=== PATIENT | female | born 1955 | race African-American/Black ===

== ENCOUNTER → 2016-09-24 | Outpatient (CLI) | payer OTHER ==
--- NOTE | 2016-09-24 11:06 | WOMENS IMAGING REPORT ---
EXAM DESCRIPTION: BILAT SCREENING MAMMO W/CAD COMPLETED DATE/TIME: 09/24/2016 9:47 am REASON FOR STUDY: Z12.31, ROUTINE SCREENING MAMMO Z12.31 ENCNTR SCREEN MAMMOGRAM FOR MALIGNANT NEOP LASM OF CHICO COMPARISON: 03/06/2015, 01/15/2011 TECHNIQUE: Standard craniocaudal and mediolateral oblique views of each breast recorded using digita l acquisition. LIMITATIONS: None. FINDINGS: Findings present which are benign by mammographic criteria. No suspicious masses, calcifi cations or architectural distortion. Read with the assistance of CAD. .[facility] - R2 Cenova Version 1.3 .[facility] Imaging - R2 Cenova Version 1.3 .[facility] Imaging - R2 Cenova Version 2.4 .[facility] - R2 Cenova Version 2.4 .[facility] - R2 Wagon Driver Salesperson Version 9.2 Benign mammographic findings may include one or more of the following: Smooth masses, popcorn/rim/co arse calcifications, asymmetries, post-procedure changes, and lesions with long-standing stability. BREAST DENSITY: b. There are scattered areas of fibroglandular density. BIRAD: 2 BENIGN FINDING(S) RECOMMENDATION: ROUTINE SCREENING COMMENT: PATIENT NOTIFIED BY LETTER. The [employer] recommends an annual screening mammogram for women aged 40 years or over. Each patient will receive a reminder prior to the anniversary date of her mammogram. The [employer] (ACR) has developed recommendations for screening MRI of the breast s in certain patient populations, to be used in conjunction with mammography. Breast MRI surveillanc e may be appropriate for women with more than 20% lifetime risk of developing breast cancer as deter mined by genetic testing, significant family history of the disease, or history of mantle radiation f or Hodgkins Disease. ACR Practice Guidelines 2008. TECHNICAL DOCUMENTATION: FINDING NUMBER: (1) ASSESSMENT: (1) JOB ID: [id number] [employer]- All Rights Reserved
== END ==
LOC: WI 09:28
PROVIDERS: ATTEND Nurse Practitioner Family
DX: Z12.31 Encounter for screening mammogram for malignant neoplasm of breast (principal)
CPT/HCPCS: 77067; G0202

== ENCOUNTER → 2017-12-15 | Outpatient (CLI) | payer OTHER ==
--- NOTE | 2017-12-16 12:18 | WOMENS IMAGING REPORT ---
EXAM DESCRIPTION: BILAT SCREENING MAMMO W/CAD COMPLETED DATE/TIME: 12/15/2017 8:24 am REASON FOR STUDY: ROUTINE SCREENING;Z12.31 Z12.31 ENCNTR SCREEN MAMMOGRAM FOR MALIGNANT NEOPLASM OF CHICO COMPARISON: Multiple since 2010 TECHNIQUE: Standard craniocaudal and mediolateral oblique views of each breast recorded using Zimbraa l acquisition. LIMITATIONS: None. FINDINGS: RIGHT BREAST MASSES: 7 cm from the nipple in the lower inner quadrant right breast, a mammographic nodule is prese nt for which compression magnification views in the CC and MLO orientations, right breast 90 mediola teral view, and right breast ultrasound are recommended for followup CALCIFICATIONS: No new or suspicious calcifications. ARCHITECTURAL DISTORTION: None. DEVELOPING DENSITY: None. ASYMMETRY: None noted. OTHER: No other significant findings. LEFT BREAST MASSES: No suspicious masses. CALCIFICATIONS: No new or suspicious calcifications. ARCHITECTURAL DISTORTION: None. DEVELOPING DENSITY: None. ASYMMETRY: None noted. OTHER: No other significant findings. Read with the assistance of CAD. .[facility] - R2 Cenova Version 1.3 .[facility] Imaging - R2 Cenova Version 1.3 .[facility] Imaging - R2 Cenova Version 2.4 .[facility] - R2 Cenova Version 2.4 .[facility] - R2 Aligner Barrel And Receiver Version 9.2 IMPRESSION: Mammographic nodule right breast lower inner quadrant for which additional diagnostic co mpression magnification mammograms and ultrasound are recommended. No mammographic evidence for malignancy left breast BREAST DENSITY: a. The breasts are almost entirely fatty. BIRAD: 0 Incomplete: Needs Additional Imaging Evaluation and/or prior Mammograms for Comparison. RECOMMENDATION: RECOMMENDED FOLLOW-UP: Additional right breast diagnostic mammograms and ultrasound The patient will be contacted for additional imaging. COMMENT: The patient has been notified of the results by letter per SA requirements. Additional no tification policies are in place for contacting patient with suspicious or incomplete findings. Quality ID #[id number]: The [employer] recommends an annual screening mammogram for women aged 40 years or over. This facility utilizes a reminder system to ensure that all patients receive reminder letters, and/or direct phone calls for appointments. This includes reminders for routine scr eening mammograms, diagnostic mammograms, or other Breast Imaging Interventions when appropriate. Th is patient will be placed in the appropriate reminder system. The [employer] (ACR) has developed recommendations for screening MRI of the breast s in certain patient populations, to be used in conjunction with mammography. Breast MRI surveillanc e may be appropriate for women with more than 20% lifetime risk of developing breast cancer as deter mined by genetic testing, significant family history of the disease, or history of mantle radiation f or Hodgkins Disease. ACR Practice Guidelines 2008. TECHNICAL DOCUMENTATION: FINDING NUMBER: (1) ASSESSMENT: (1) JOB ID: [id number] [employer]- All Rights Reserved Reading location - IP/workstation name: [facility]
== END ==
LOC: WI 08:07
PROVIDERS: ATTEND Nurse Practitioner Family
DX: Z12.31 Encounter for screening mammogram for malignant neoplasm of breast (principal); N63.14 Unspecified lump in the right breast, lower inner quadrant
CPT/HCPCS: 77067

== ENCOUNTER → 2018-01-02 | Outpatient (CLI) | payer OTHER ==
--- NOTE | 2018-01-02 17:56 | WOMENS IMAGING REPORT ---
EXAM DESCRIPTION: RIGHT DIAGNOSTIC MAMMO W/CAD; U/S BREAST UNILAT LIMITED COMPLETED DATE/TIME: 01/02/2018 11:08 am; 01/02/2018 11:34 am REASON FOR STUDY: UNSPECIFIED LUMP; N63.14; RT BREAST N63.14 N63.14 UNSPECIFIED LUMP IN THE RIGHT B REAST, LOWER INNER HEENA COMPARISON: Screening mammograms 2010, 2014, 2016, 2017 TECHNIQUE: Cone compression craniocaudal and mediolateral oblique images of the breast recorded with digital acquisition. Right breast 90 mediolateral view. Right breast and axilla ultrasound was also performed. LIMITATIONS: None. FINDINGS: BREAST: Right MASSES: In the medial right breast 2 to 3 o'clock position about 8 to 9 cm from the nipple, a mammogr aphic nodule is present with spiculated margins and punctate calcifications highly suspicious for mal ignancy. This measures about 10 x 15 mm in size mammographically CALCIFICATIONS: No new or suspicious calcifications. ARCHITECTURAL DISTORTION: None. DEVELOPING DENSITY: None. ASYMMETRY: None noted. OTHER: No other significant findings. Read with the assistance of CAD. .[facility] - R2 Cenova Version 1.3 .[facility] Imaging - R2 Cenova Version 1.3 .[facility] Imaging - R2 Cenova Version 2.4 .[facility] - R2 Cenova Version 2.4 .[facility] - R2 Retail Helper Version 9.2 Right breast ultrasound: Ultrasound was performed of the medial right breast. About 2 to 3 o'clock position 8 to 9 cm from th e nipple a 1.5 x 1 by 1.1 cm mass is present with irregular margins, internal color flow, and faintly shadowing calcifications. This highly suspicious for malignancy. Ultrasound-guided core biopsy with post biopsy clip placement was discussed with the patient at the t joanie of the ultrasound exam. She is amenable to ultrasound-guided core biopsy. IMPRESSION: Malignant appearing 1.5 x 1 cm mass right breast 2 to 3 o'clock position, 8 to 9 cm from the nipple. Ultrasound-guided core biopsy with post biopsy clip placement and immediate follow-up t wo-view mammogram recommended. BREAST DENSITY: a. The breasts are almost entirely fatty. BIRAD: 5 Highly suggestive of malignancy. Appropriate action should be taken. RECOMMENDATION: RECOMMENDED FOLLOW UP: Ultrasound-guided right breast biopsy with post biopsy clip p lacement and follow-up two-view mammogram SPECIFIC INTERVENTION/IMAGING/CONSULTATION RECOMMENDED:Ultrasound-guided right breast biopsy with pos t biopsy clip placement and follow-up two-view mammogram COMMUNICATION:These results were discussed with the patient. She understands she needs a breast biop sy on the right side. Findings were also called to Katie at [facility] Teague' office, 1000 hours 12/06. COMMENT: The patient has been notified of the results by letter per SA requirements. Additional no tification policies are in place for contacting patient with suspicious or incomplete findings. Quality ID #225: The [employer] recommends an annual screening mammogram for women aged 40 years or over. This facility utilizes a reminder system to ensure that all patients receive reminder letters, and/or direct phone calls for appointments. This includes reminders for routine scr eening mammograms, diagnostic mammograms, or other Breast Imaging Interventions when appropriate. Th is patient will be placed in the appropriate reminder system. The [employer] (ACR) has developed recommendations for screening MRI of the breast s in certain patient populations, to be used in conjunction with mammography. Breast MRI surveillanc e may be appropriate for women with more than 20% lifetime risk of developing breast cancer as deter mined by genetic testing, significant family history of the disease, or history of mantle radiation f or Hodgkins Disease. ACR Practice Guidelines 2008. TECHNICAL DOCUMENTATION: FINDING NUMBER: (1) ASSESSMENT: (1) JOB ID: [id number] [employer]- All Rights Reserved Reading location - IP/workstation name: [facility]-[email or web address]
--- NOTE | 2018-01-02 17:56 | WOMENS IMAGING REPORT ---
EXAM DESCRIPTION: RIGHT DIAGNOSTIC MAMMO W/CAD; U/S BREAST UNILAT LIMITED COMPLETED DATE/TIME: 01/02/2018 11:08 am; 01/02/2018 11:34 am REASON FOR STUDY: UNSPECIFIED LUMP; N63.14; RT BREAST N63.14 N63.14 UNSPECIFIED LUMP IN THE RIGHT B REAST, LOWER INNER HEENA COMPARISON: Screening mammograms 2010, 2014, 2016, 2017 TECHNIQUE: Cone compression craniocaudal and mediolateral oblique images of the breast recorded with digital acquisition. Right breast 90 mediolateral view. Right breast and axilla ultrasound was also performed. LIMITATIONS: None. FINDINGS: BREAST: Right MASSES: In the medial right breast 2 to 3 o'clock position about 8 to 9 cm from the nipple, a mammogr aphic nodule is present with spiculated margins and punctate calcifications highly suspicious for mal ignancy. This measures about 10 x 15 mm in size mammographically CALCIFICATIONS: No new or suspicious calcifications. ARCHITECTURAL DISTORTION: None. DEVELOPING DENSITY: None. ASYMMETRY: None noted. OTHER: No other significant findings. Read with the assistance of CAD. .[facility] - R2 Cenova Version 1.3 .[facility] Imaging - R2 Cenova Version 1.3 .[facility] - R2 Cenova Version 2.4 .[facility] - R2 Cenova Version 2.4 .[facility] - R2 Clinical Instructor Version 9.2 Right breast ultrasound: Ultrasound was performed of the medial right breast. About 2 to 3 o'clock position 8 to 9 cm from th e nipple a 1.5 x 1 by 1.1 cm mass is present with irregular margins, internal color flow, and faintly shadowing calcifications. This highly suspicious for malignancy. Ultrasound-guided core biopsy with post biopsy clip placement was discussed with the patient at the t joanie of the ultrasound exam. She is amenable to ultrasound-guided core biopsy. IMPRESSION: Malignant appearing 1.5 x 1 cm mass right breast 2 to 3 o'clock position, 8 to 9 cm from the nipple. Ultrasound-guided core biopsy with post biopsy clip placement and immediate follow-up t wo-view mammogram recommended. BREAST DENSITY: a. The breasts are almost entirely fatty. BIRAD: 5 Highly suggestive of malignancy. Appropriate action should be taken. RECOMMENDATION: RECOMMENDED FOLLOW UP: Ultrasound-guided right breast biopsy with post biopsy clip p lacement and follow-up two-view mammogram SPECIFIC INTERVENTION/IMAGING/CONSULTATION RECOMMENDED:Ultrasound-guided right breast biopsy with pos t biopsy clip placement and follow-up two-view mammogram COMMUNICATION:These results were discussed with the patient. She understands she needs a breast biop sy on the right side. Findings were also called to Katie at [facility] office, 1000 hours 12/06. COMMENT: The patient has been notified of the results by letter per SA requirements. Additional no tification policies are in place for contacting patient with suspicious or incomplete findings. Quality ID #225: The [employer] recommends an annual screening mammogram for women aged 40 years or over. This facility utilizes a reminder system to ensure that all patients receive reminder letters, and/or direct phone calls for appointments. This includes reminders for routine scr eening mammograms, diagnostic mammograms, or other Breast Imaging Interventions when appropriate. Th is patient will be placed in the appropriate reminder system. The [employer] (ACR) has developed recommendations for screening MRI of the breast s in certain patient populations, to be used in conjunction with mammography. Breast MRI surveillanc e may be appropriate for women with more than 20% lifetime risk of developing breast cancer as deter mined by genetic testing, significant family history of the disease, or history of mantle radiation f or Hodgkins Disease. ACR Practice Guidelines 2008. TECHNICAL DOCUMENTATION: FINDING NUMBER: (1) ASSESSMENT: (1) JOB ID: [id number] [employer]- All Rights Reserved Reading location - IP/workstation name: [email or web address]
== END ==
LOC: WI 09:19
PROVIDERS: ATTEND Nurse Practitioner Family
DX: N63.14 Unspecified lump in the right breast, lower inner quadrant (principal)
CPT/HCPCS: 76642

== ENCOUNTER → 2018-01-13 | Day surgery (SDC) | payer OTHER ==
[~2018-01-13] MED LIST: LIDOCAINE 2% INJ (20 MG/ML) 20 ML MDV ONE
--- NOTE | 2018-01-18 07:25 | WOMENS IMAGING REPORT ---
EXAM DESCRIPTION: U/S BREAST BX; RIGHT DIG DX MAMMO NO CHG COMPLETED DATE/TIME: 01/13/2018 2:15 pm; 01/13/2018 2:04 pm REASON FOR STUDY: BREAST LUMP; N63.0 S/P US RIGHT BREAST BX FOR CLIP PLACEMENT N63.10 UNSPECIFIED L UMP IN THE RIGHT BREAST, UNSPECIFIED HEENA COMPARISON: Multiple mammograms since 2010 Diagnostic mammograms and ultrasound 01/02/2018 TECHNIQUE: The procedure was discussed with the patient and the patient agreed to proceed. The patient was scanned and the area of interest in the 2 to 3 o'clock position 8 cm from the nipple of the right breast was localized. This correlates with the area of concern on prior imaging studies . This area was targeted for ultrasound-guided core biopsy. After sterile skin prep and 3.5 mL local lidocaine 1% for skin and deep tissue anesthesia, a 14 gauge coaxial core biopsy needle was used to obtain several cores of tissue from the lesion. Under ultras ound guidance, a ribbon clip was placed in the areas sampled. There were no immediate post-procedure complications. MAMMOGRAM: Post-procedure two view mammogram was acquired in the digital mammogram suite. The clip wa s in the expected location. No significant hematoma. Pathology yields a diagnosis of invasive ductal carcinoma Pathology is concordant. LIMITATIONS: None. FINDINGS: Ultrasound guided breast biopsy as described above. POST PROCEDURE MAMMOGRAMS FOR MARKER PLACEMENT: Yes IMPRESSION: ULTRASOUND-GUIDED CORE BIOPSY OF THE RIGHT BREAST YIELDS A DIAGNOSIS OF INVASIVE DUCTAL CARCINOMA BI-RADS 6 Known biopsy-proven malignancy. Appropriate action should be taken. COMMENT: PROCEDURE PERFORMED BY DR. ALARCON COMMUNICATION: THESE RESULTS WERE CALLED TO NICOL VELAZCO 1330 HOURS 01/16/2018. SHE WILL ARRANGE FO LLOW-UP FOR THE PATIENT Patient medication list reviewed: Yes- Quality ID# [id number]:Eligible professional attests to documenting i n the medical record they obtained, updated, or reviewed the patient's current medications. TECHNICAL DOCUMENTATION: JOB ID: [id number] [employer]- All Rights Reserved Reading location - IP/workstation name: [facility]-RR
== END ==
LOC: WI 13:05
PROVIDERS: ATTEND Nurse Practitioner Family
DX: C50.911 Malignant neoplasm of unspecified site of right female breast (principal)
CPT/HCPCS: 88342 ×2; 88341 ×2; 88305 ×2; 19083; J3490

== ENCOUNTER 2018-02-22 09:48 | Day surgery (SDC) | payer OTHER ==
[2018-02-15 11:06] LABS: HEMATOCRIT 46.3 % (36.0-47.0); HEMOGLOBIN 15.3 g/dL (12.0-15.5); MEAN CORPUSCULAR HEMOGLOBIN 27.5 pg (27.0-33.4); MEAN CORPUSCULAR HGB CONC 33.1 g/dL (32.0-36.0); MEAN CORPUSCULAR VOLUME 83 fl (80-97); PLATELET COUNT 306 10^3/uL (150-450); RED BLOOD COUNT 5.57 10^6/uL (3.72-5.28); RED CELL DISTRIBUTION WIDTH 14.2 % (11.5-14.0); WHITE BLOOD COUNT 6.5 10^3/uL (4.0-10.5)
[2018-02-15 11:23] LABS: ANION GAP 15 (5-19); BLOOD UREA NITROGEN 16 mg/dL (7-20); CALCIUM 10.3 mg/dL (8.4-10.2); CARBON DIOXIDE 25 mmol/L (22-30); CHLORIDE 104 mmol/L (98-107); GLUCOSE 77 mg/dL (75-110); POTASSIUM 3.8 mmol/L (3.6-5.0); SODIUM 143.9 mmol/L (137-145)
--- NOTE | 2018-02-15 13:18 | EKG REPORT ---
SEVERITY:- NORMAL ECG - SINUS RHYTHM : Confirmed by: Cb Mcmillan MD 15-Feb-2018 13:17:58
[~2018-02-22 09:48] MED LIST changes: +CEFAZOLIN 1 GM/D5W RTU 1 GM/50 ML RTUPB IV PRN; +DEXTROSE 5%-LACTATED RINGERS 1,000 ML IV PRN; +LACTATED RINGERS 1000 ML IV PRN; +LIDOCAINE 0.5% INJ-PF (5 MG/ML) 50 ML SDV SUBCUT PRN; -LIDOCAINE 2% INJ (20 MG/ML) 20 ML MDV ONE; +LIDOCAINE 4% TRANSPARENT DRESSING 5 GM KIT TP PRN
[2018-02-22] MEDS ORDERED: MICROFIBRILLAR COLLAGEN 1 GM PACK ONE (11:21)
[2018-02-22] MEDS ORDERED: METHYLENE BLUE 50 MG/10 ML AMPULE ONE (11:21)
[2018-02-22] MEDS ORDERED: LIDOCAINE 1%/EPINEPHRINE INJ 20 ML VIAL ONE (11:22)
[2018-02-22] MEDS ORDERED: FENTANYL CITRATE INJ/PF 100 MCG/2 ML AMPUL ONE (13:15)
[2018-02-22] MEDS ORDERED: MIDAZOLAM 2 MG/2 ML INJ ONE (13:15)
[2018-02-22] MEDS ORDERED: ACETAMINOPHEN 1,000 MG/100 ML RTUPB IV ONE (13:15)
[2018-02-22] MEDS ORDERED: PROPOFOL INJ 200 MG/20 ML VIAL IV ONE (13:15)
--- NOTE | 2018-02-22 13:37 | RADIOLOGY REPORT (SQ) ---
EXAM DESCRIPTION: NM LYMPHATICS/LYMPH GLANDS COMPLETED DATE/TIME: 02/22/2018 12:02 pm REASON FOR STUDY: BREAST CANCER C50.919 MALIGNANT NEOPLASM OF UNSP SITE OF UNSPECIFIED FEMAL COMPARISON: Ultrasound-guided right breast core breast biopsy 01/13/2018 RADIONUCLIDE AND DOSE: 540 microcuries TC-99m tilmanocept - Lymphoseek. The route of agent administration: Subcutaneous in the skin. TECHNIQUE: The skin of the right breast was prepped in sterile fashion. The radiopharmaceutical was administered in equally divided doses in the periareolar breast. LIMITATIONS: None. FINDINGS: Images demonstrate activity at the injection site. There is migration of activity towards the right axilla IMPRESSION: ADMINISTRATION OF RADIOPHARMACEUTICAL FOR SENTINEL LYMPH NODE EVALUATION. TECHNICAL DOCUMENTATION: JOB ID: [id number] [employer]- All Rights Reserved Reading location - IP/workstation name: [email or web address]
[2018-02-22] MEDS ORDERED: FENTANYL CITRATE INJ/PF 100 MCG/2 ML AMPUL IV PRN ×3 (14:11)
[2018-02-22] MEDS ORDERED: MEPERIDINE HCL/PF INJ 25 MG/1 ML DISP.SYRIN IV PRN (14:11)
[2018-02-22] MEDS ORDERED: DIPHENHYDRAMINE HCL 50 MG/ML VIAL IV PRN (14:11)
[2018-02-22] MEDS ORDERED: PROMETHAZINE HCL INJ 25 MG/1 ML VIAL IV PRN ×2 (14:11)
[2018-02-22] MEDS ORDERED: OXYCODONE-ACETAMINOPHEN 5-325 MG TABLET PO PRN (15:00)
--- NOTE | 2018-02-22 15:00 | Discharge Summary ---
Discharge Summary (SDC) - Discharge Final Diagnosis: Right breast cancer Date of Surgery: 02/22/18 Discharge Date: 02/22/18 Condition: Stable Treatment or Instructions: [facility] [address], [place] [address] Care Instructions Following Your Lumpectomy Activities: Resume normal activities when you feel comfortable. It is best to remain as active as possible to speed your recovery. It is common to experience some fatigue after surgery and you may find that short naps are helpful. Avoid strenuous activity such as weight lifting, tennis, etc at your surgical site for two weeks. Perform gentle arm exercises daily and do not favor your operative arm to due increased risk of mobility issues postoperatively. No driving for 7 days after surgery. Do not drive if you are taking pain medication other than Tylenol or Ibuprofen. No swimming, tub baths or soaking in a hot tub for 4 weeks. There are no dietary restrictions. Do not smoke as this impairs wound healing. Surgical Site care: Skin glue is covering your incisions. Leave skin glue intact until it falls off on your own. You may shower in 24 hours to include washing the wound with soap and water using your hands. Do not scrub the incision. Pat the area dry with a towel. You do not need to recover the wound although some patients find that they feel more comfortable using a light dressing for a few days to absorb any minimal drainage which may occur. Do not use heating pad or apply an ice pack to the operative site. You may apply deodorant if you are careful to avoid getting it on the wound itself. Medications: You may take Toradol 10mg one pill by mouth every six hours as needed for pain. Resume all of your normal prescription medications after your surgery unless instructed otherwise. You may experience constipation after surgery. It is helpful to stay hydrated by drinking lots of fluids. Walking is also helpful and is good exercise after surgery. If you need extra help, use Milk of Magnesia according to the directions on the package. Follow-up: Call our office at to make a follow-up appointment in 10-14 days. Your doctor will call to discuss the pathology report with you as soon as it is available. Concerns: If you had a sentinel lymph node biopsy with your mastectomy, your urine may have a greenish discoloration. This is normal and will resolve as the blue dye slowly leaves your system. If you notice significant leakage around the drains , this is not normal. The drains may be clogged. Please call our office to come in immediately for the drains to be checked. Some bruising may occur and will go away over time. If you have a fever of 101.5 or greater, chills, redness at the incision site, excessive drainage from your wound or severe pain not relieved by pain medication, call your doctor. A physician is available 24 hours a day 7 days a week in addition to regular office hours. If problems arise after normal office hours please call the hospital at . Please call if you have any questions or concerns. Prescriptions: Ketorolac Tromethamine [Toradol 10 mg Tablet] 10 mg PO Q6HP PRN #20 tablet PRN Reason: Referrals: NICOL VELAZCO FNP-C [Primary Care Provider] - Discharge Activity: Walk Frequently Report the Following to Your Physician Immediately: Fever over 101 Degrees, Unusual Bleeding, Redness, Swelling, Warmth, Increased Soreness, Drainage-Foul Smelling
[2018-02-22] MEDS ORDERED: SUCCINYLCHOLINE CHLORIDE INJ 200 MG/10 ML VIAL ONE (15:09)
[2018-02-22] MEDS ORDERED: ROCURONIUM BROMIDE INJ 50 MG/5 ML VIAL IV ONE (15:09)
[2018-02-22] MEDS ORDERED: KETOROLAC TROMETHAMINE 60 MG/2 ML SDV ONE (15:09)
[2018-02-22] MEDS ORDERED: DEXAMETHASONE SOD PHOSPHATE INJ 4 MG/1 ML VIAL ONE (15:09)
[2018-02-22] MEDS ORDERED: LIDOCAINE 2% INJ-PF (20 MG/ML) 2 ML AMPUL ONE (15:09)
[2018-02-22] MEDS ORDERED: ONDANSETRON HCL INJ/PF 4 MG/2 ML SDV ONE (15:09)
--- NOTE | 2018-02-22 15:09 | Operative Report ---
Operative Report DATE OF SURGERY: 02/22/18 PREOPERATIVE DIAGNOSIS: Invasive right breast carcinoma POSTOPERATIVE DIAGNOSIS: Same OPERATION: 1. Focused ultrasound of the right chest wall. 2. Open right breast excisional biopsy ( lumpectomy) right breast using ultrasound localization. 3. [place] lymph node biopsy right axilla 1. 4. Interpretation of intraoperative specimen radiograph SURGEON: ZULEYKA OWUSU 1ST BOILER ERECTOR: ANANT FRAUSTO ANESTHESIA: GA TISSUE REMOVED OR ALTERED: Right breast lumpectomy specimen; right axillary sentinel lymph node COMPLICATIONS: None ESTIMATED BLOOD LOSS: Scant INTRAOPERATIVE FINDINGS: See below PROCEDURE: The patient was seen in the preop holding area the right breast was marked. The patient then taken the main operating where general anesthesia was induced. Right arm abducted right breast exposed. We performed physical examination and focused ultrasound of the right breast and confirmed the upper inner quadrant tumor with clip marker placement approximately 8 cm from nipple at the 230 position. The right breast was now injected intradermally with approximately 2 and half cc of dilute blue dye at the 10 o'clock position area [place] border. The right breast was massaged, than the right breast and axilla were prepped and draped in sterile fashion. Surgical plan and surgical timeout were conducted. We proceeded with open right breast lumpectomy first. Using ultrasound as a guide, we made a dao on the upper inner quadrant of the right breast, horizontally oriented. Skin was anesthetized with 1% plain lidocaine. Approximately 4 cm incision was made with a knife, and a lumpectomy was performed using a combination of electrocautery, blunt, and the [place] retractors. The specimen was removed from the right breast, containing the tumor with clip marker placement in the center of the lumpectomy specimen. The tumor was in the anterior portion of the specimen. The only margin anterior to the lumpectomy was the patient's skin. Sutures were placed shorten the superior along the lateral and the specimen brought off the field. It was placed in a container and imaged in 2 planes the portable imaging machine in the operating room. The specimen in fact contain the tumor, and clip. The specimen was subsequently taken to pathology where was evaluated by Dr. Jara, the pathologist. He did not cut into the specimen. He believed that the anterior margin was the closest of the 6 sides, but did not require excision of skin as an additional anterior margin. We now turned our attention to the right axilla. [place] lymph node biopsy was performed of one hot blue sentinel lymph. Optimal placement of the skin incision was made in the low axilla. Skin was adhesive as 1% plain lidocaine, 3 cm incision was made curvilinear to the skin crease. The node was hot blue Level One with an in vivo count of 11,700, and ex vivo count of 48,111. Background counts were approximately 129 we spent a fair amount of time studying the axilla and were comfortable that there were no additional sentinel nodes for harvesting. Hemostasis checked in the recesses of both the right axillary and right breast cavities. The team was placed in the recess of the wound was closed with 2-0 Vicryl Dermabond glue. Patient tolerated the procedure well, extubated, taken recovery in stable condition. The physician child care center assistant director, Ms. Martel, provided assistance during this case by: Assisting , retracting tissue, instillation of local anesthesia and closure of skin incisions.
[2018-02-22 17:16] VITALS: BP 131/77
--- NOTE | 2018-02-24 17:56 | RADIOLOGY REPORT (SQ) ---
EXAM DESCRIPTION: BREAST SPECIMEN COMPLETED DATE/TIME: 02/22/2018 3:13 pm; 02/23/2018 11:36 am REASON FOR STUDY: RT BREAST LUMPECTOMY / BX; RT BREAST SPECIMEN C50.919 MALIGNANT NEOPLASM OF UNSP SITE OF UNSPECIFIED FEMAL COMPARISON: None. TECHNIQUE: Specimen radiograph from breast procedure performed in the operating room. Subsequent radiographs of specimen cassettes from pathology LIMITATIONS: None. FINDINGS: Specimen radiograph from breast procedure performed in the operating room demonstrates the nodule of concern with sonographically placed biopsy clip. Radiographs of pathology blocks demonstrate the clip and breast mass contained within the specimen. Please see procedure note for details and final pathology. IMPRESSION: Specimen radiograph. TECHNICAL DOCUMENTATION: JOB ID: [id number] Reading location - IP/workstation name: [email or web address]
== END 2018-02-22 17:20 | disposition home or self-care (01) ==
LOC: OROUT 09:48
PROVIDERS: ATTEND Surgery
DX: C50.811 Malignant neoplasm of overlapping sites of right female breast (principal); C77.3 Secondary and unspecified malignant neoplasm of axilla and upper limb lymph nodes; I10 Essential (primary) hypertension; E78.00 Pure hypercholesterolemia, unspecified; E03.9 Hypothyroidism, unspecified; E66.9 Obesity, unspecified; G47.33 Obstructive sleep apnea (adult) (pediatric); Z68.33 Body mass index [BMI] 33.0-33.9, adult; Z79.899 Other long term (current) drug therapy
CPT/HCPCS: 93005; 36415 ×2; 84132; 85027; 80048; 88342 ×2; 88307 ×2; 78195; 93010; 76098; 19301; 38500; A9520; J2250; J0690; J3490 ×5; J1100; J1885; J3010; J0330; J2405; J2704; J0131; Q9968; 400

== ENCOUNTER → 2018-02-23 | Outpatient (CLI) | payer OTHER ==
--- NOTE | 2018-02-24 17:56 | WOMENS IMAGING REPORT ---
EXAM DESCRIPTION: BREAST SPECIMEN COMPLETED DATE/TIME: 02/22/2018 3:13 pm; 02/23/2018 11:36 am REASON FOR STUDY: RT BREAST LUMPECTOMY / BX; RT BREAST SPECIMEN C50.919 MALIGNANT NEOPLASM OF UNSP SITE OF UNSPECIFIED FEMAL COMPARISON: None. TECHNIQUE: Specimen radiograph from breast procedure performed in the operating room. Subsequent radiographs of specimen cassettes from pathology LIMITATIONS: None. FINDINGS: Specimen radiograph from breast procedure performed in the operating room demonstrates the nodule of concern with sonographically placed biopsy clip. Radiographs of pathology blocks demonstrate the clip and breast mass contained within the specimen. Please see procedure note for details and final pathology. IMPRESSION: Specimen radiograph. TECHNICAL DOCUMENTATION: JOB ID: [id number] Reading location - IP/workstation name: [email or web address]
== END ==
LOC: WI 10:15
PROVIDERS: ATTEND Surgery
DX: C50.919 Malignant neoplasm of unspecified site of unspecified female breast (principal)

== ENCOUNTER 2018-03-29 12:31 | Day surgery (SDC) | payer OTHER ==
[2018-03-27 11:03] LABS: HEMOGLOBIN 14.5 g/dL (12.0-15.5); MEAN CORPUSCULAR HEMOGLOBIN 26.6 pg (27.0-33.4); MEAN CORPUSCULAR HGB CONC 32.2 g/dL (32.0-36.0); MEAN CORPUSCULAR VOLUME 83 fl (80-97); PLATELET COUNT 256 10^3/uL (150-450); RED BLOOD COUNT 5.44 10^6/uL (3.72-5.28); RED CELL DISTRIBUTION WIDTH 14.5 % (11.5-14.0); WHITE BLOOD COUNT 5.4 10^3/uL (4.0-10.5)
[2018-03-27 11:33] LABS: ANION GAP 13 (5-19); BLOOD UREA NITROGEN 17 mg/dL (7-20); CARBON DIOXIDE 28 mmol/L (22-30); CHLORIDE 101 mmol/L (98-107); GLUCOSE 82 mg/dL (75-110); POTASSIUM 4.2 mmol/L (3.6-5.0); SODIUM 141.6 mmol/L (137-145)
[~2018-03-29 12:31] MED LIST changes: +ACETAMINOPHEN 325 MG TABLET PO PRN; -DEXTROSE 5%-LACTATED RINGERS 1,000 ML IV PRN; -LIDOCAINE 4% TRANSPARENT DRESSING 5 GM KIT TP PRN
[2018-03-29] MEDS ORDERED: LIDOCAINE 1%/EPINEPHRINE INJ 20 ML VIAL ONE (14:53)
[2018-03-29] MEDS ORDERED: MIDAZOLAM 2 MG/2 ML INJ ONE (15:16)
[2018-03-29] MEDS ORDERED: FENTANYL CITRATE INJ/PF 100 MCG/2 ML AMPUL ONE (15:16)
[2018-03-29] MEDS ORDERED: PROPOFOL INJ 200 MG/20 ML VIAL IV ONE (15:17)
[2018-03-29] MEDS ORDERED: OXYCODONE-ACETAMINOPHEN 5-325 MG TABLET PO PRN ×3 (16:12→16:54)
[2018-03-29] MEDS ORDERED: PROMETHAZINE HCL INJ 25 MG/1 ML VIAL IV PRN ×2 (16:12)
[2018-03-29] MEDS ORDERED: FENTANYL CITRATE INJ/PF 100 MCG/2 ML AMPUL IV PRN ×3 (16:12)
[2018-03-29] MEDS ORDERED: DIPHENHYDRAMINE HCL 50 MG/ML VIAL IV PRN (16:12)
[2018-03-29] MEDS ORDERED: MEPERIDINE HCL/PF INJ 25 MG/1 ML DISP.SYRIN IV PRN (16:12)
[2018-03-29] MEDS ORDERED: MORPHINE SULFATE 10 MG/ML INJ IV PRN (16:12)
--- NOTE | 2018-03-29 16:43 | Operative Report ---
Operative Report DATE OF SURGERY: 03/29/18 PREOPERATIVE DIAGNOSIS: Invasive ductal carcinoma status post BCT POSTOPERATIVE DIAGNOSIS: Same OPERATION: 1. Focused ultrasound of the left neck. 2. Ultrasound directed insertion of single-lumen port a catheter. 3. Interpretation of intraoperative fluoroscopy SURGEON: ZULEYKA OWUSU 1ST TECHNICIAN PLANT AND MAINTENANCE: ANANT FRAUSTO ANESTHESIA: LMAC TISSUE REMOVED OR ALTERED: None COMPLICATIONS: None ESTIMATED BLOOD LOSS: Scant INTRAOPERATIVE FINDINGS: See below PROCEDURE: Patient was taken to the preop holding area the main operating room where LMAC anesthesia left breast was prepped and draped in sterile fashion. Surgical plan surgical timeout conducted. The left neck was scanned with the variable frequency linear transducer. Findings were significant for patent, compressible internal jugular vein Skin was anesthetized with 1% plain lidocaine. A small francie was made in the skin with 11 blade. Micro needle and wire were introduced under fluoroscopic guidance into the left internal jugular vein Suitable site for placement of the port was chosen. Skin was any status 1% plain lidocaine. A 3 cm incision was made in the subclavian position. A port pocket developed large enough to accommodate a single-chamber port was performed with electrocautery and blunt dissection. The catheter was then trimmed the appropriate length, tunneled between 2 incisions, attached to the port with the plastic ring. The port was tucked into the subclavian pocket. The micro wire was switched over to a conventional guidewire 0.030 inch using the micro introducer sheath. This is all performed under fluoroscopic guidance. He now threaded the dilator and introducer sheath over the guidewire , guidewire dilator removed, and catheter threaded into the strip away sheath. Under fluoroscopic guidance, the catheter was found to be in the innominate vein , no evidence of kinking of the catheter. There is no evidence of pneumothorax. There was excellent aspiration and flush to the catheter. There was no evidence of ectopy. We felt the installation was successful. Wounds closed with 3-0 Vicryl benzoin and Steri-Strips. Patient tolerated procedure well and taken to the recovery room in stable condition. The physician higher level teaching assistant, Ms. Martel, provided assistance during this case by: Assisting retracting tissue, instillation of local anesthesia and closure of skin incisions.
--- NOTE | 2018-03-29 16:54 | Discharge Summary ---
Discharge Summary (SDC) - Discharge Final Diagnosis: breast cancer Date of Surgery: 03/29/18 Discharge Date: 03/29/18 Condition: Stable Treatment or Instructions: WOUND CARE: Do not get area wet for 48 hours. After 48 hours you may shower, allowing water/ soap to run over steri strips (paper bandaids), do not scrub area. Leave steri strips intact. They will fall away on their own. PAIN MANAGEMENT: You may take Toradol 10mg on pill by mouth every six hours as needed for pain. FOLLOW UP: You may follow up at [facility] in 7 days. Call clinic sooner with questions/concerns. Prescriptions: Ketorolac Tromethamine [Toradol 10 mg Tablet] 10 mg PO Q6HP PRN #20 tablet PRN Reason: Referrals: NICOL VELAZCO, CORPORATE ANALYST-C [Primary Care Provider] - Discharge Diet: As Tolerated Discharge Activity: No Lifting Over 10 Pounds, Walk Frequently Report the Following to Your Physician Immediately: Shortness of Breath, Increase in Pain, Fever over 101 Degrees, Unusual Bleeding, Redness, Swelling
[2018-03-29 18:50] VITALS: BP 135/77
--- NOTE | 2018-03-30 08:47 | RADIOLOGY REPORT (SQ) ---
EXAM DESCRIPTION: FLUORO/CV PLACEMENT COMPLETED DATE/TIME: 03/29/2018 5:45 pm REASON FOR STUDY: PORT A CATH INSERTION C50.919 MALIGNANT NEOPLASM OF UNSP SITE OF UNSPECIFIED FEMA L COMPARISON: None. FLUOROSCOPY TIME: 1 minutes. 1 images saved to PACS. TECHNIQUE: Intra-operative images acquired during surgical procedure to evaluate progress. NUMBER OF IMAGES: 1 image. LIMITATIONS: None. FINDINGS: Image of the chest acquired during port placement. IMPRESSION: IMAGE(S) OBTAINED DURING PROCEDURE. COMMENT: Quality ID [id number]: Final reports for procedures using fluoroscopy that document radiation exp osure indices, or exposure time and number of fluorographic images (if radiation exposure indices are not available) Please consult full operative report of the attending physician for description of the procedure. TECHNICAL DOCUMENTATION: JOB ID: [id number] [employer]- All Rights Reserved Reading location - IP/workstation name: [email or web address]
== END 2018-03-29 18:20 | disposition home or self-care (01) ==
LOC: OROUT 12:31
PROVIDERS: ATTEND Surgery
DX: C50.211 Malignant neoplasm of upper-inner quadrant of right female breast (principal); C77.3 Secondary and unspecified malignant neoplasm of axilla and upper limb lymph nodes; Z17.0 Estrogen receptor positive status [ER+]; I10 Essential (primary) hypertension; E78.00 Pure hypercholesterolemia, unspecified; E03.9 Hypothyroidism, unspecified; Z79.899 Other long term (current) drug therapy
CPT/HCPCS: 36561; 36415 ×2; 84132; 85027; 80048; 77001; C1752; C1788; J2250; J0690; J3010; J3490; J2704; J1642; 532

== ENCOUNTER → 2018-07-28 | Outpatient (CLI) | payer OTHER ==
[2018-07-28 11:40] LABS: ABSOLUTE EOSINOPHILS # (AUTO) 0.2 10^3/uL (0.0-0.6); ABSOLUTE LYMPHOCYTES (AUTO) 1.1 10^3/uL (0.5-4.7); ABSOLUTE MONOCYTES (AUTO) 0.3 10^3/uL (0.1-1.4); EOSINOPHILS % (AUTO) 5.5 % (0-6); HEMATOCRIT 36.4 % (36.0-47.0); HEMOGLOBIN 11.9 g/dL (12.0-15.5); LYMPHOCYTES % (AUTO) 30.4 % (13-45); MEAN CORPUSCULAR HEMOGLOBIN 27.8 pg (27.0-33.4); MEAN CORPUSCULAR HGB CONC 32.6 g/dL (32.0-36.0); MEAN CORPUSCULAR VOLUME 85 fl (80-97); MONOCYTES % (AUTO) 8.1 % (3-13); PLATELET COUNT 335 10^3/uL (150-450); RED BLOOD COUNT 4.27 10^6/uL (3.72-5.28); RED CELL DISTRIBUTION WIDTH 15.8 % (11.5-14.0); TOTAL CELLS COUNTED % (AUTO) 100 %; WHITE BLOOD COUNT 3.7 10^3/uL (4.0-10.5)
[2018-07-28 11:57] LABS: ALANINE AMINOTRANSFERASE 16 U/L (9-52); ALBUMIN 3.4 g/dL (3.5-5.0); ALKALINE PHOSPHATASE 60 U/L (38-126); ASPARTATE AMINO TRANSFERASE 18 U/L (14-36); BILIRUBIN,DIRECT 0.3 mg/dL (0.0-0.4); BILIRUBIN,TOTAL 0.5 mg/dL (0.2-1.3); TOTAL PROTEIN 6.8 g/dL (6.3-8.2)
== END ==
LOC: OD 10:46
PROVIDERS: ATTEND Radiology Radiation Oncology
DX: C50.211 Malignant neoplasm of upper-inner quadrant of right female breast (principal); Z79.899 Other long term (current) drug therapy
CPT/HCPCS: 36415; 80076; 85025

== ENCOUNTER → 2019-01-17 | Outpatient (CLI) | payer OTHER ==
--- NOTE | 2019-01-17 11:57 | WOMENS IMAGING REPORT ---
EXAM DESCRIPTION: BILAT DIAGNOSTIC MAMMO W/CAD COMPLETED DATE/TIME: 01/17/2019 11:34 am REASON FOR STUDY: C50.211 MALIGNANT NEOPLASM OF UPPER-INNER QUADRANT OF RIGHT FEMALE BREAST C50.211 MALIG NEOPLM OF UPPER-INNER QUADRANT OF RIGHT FEMALE COMPARISON: Multiple since 2010 TECHNIQUE: Standard craniocaudal and mediolateral oblique views of each breast recorded using digita l acquisition. Additional right breast 90 mediolateral view and right breast cone compression in the CC and mL brady g the lumpectomy site LIMITATIONS: None. FINDINGS: RIGHT BREAST MASSES: No suspicious masses. CALCIFICATIONS: No new or suspicious calcifications. ARCHITECTURAL DISTORTION: Postoperative changes are present in the right breast lower inner quadrant, 3 to 4 o'clock position from lumpectomy. DEVELOPING DENSITY: None. ASYMMETRY: None noted. OTHER: Right breast skin thickening and thickened interstitial markings from breast radiation therapy LEFT BREAST MASSES: No suspicious masses. CALCIFICATIONS: No new or suspicious calcifications. ARCHITECTURAL DISTORTION: None. DEVELOPING DENSITY: None. ASYMMETRY: None noted. OTHER: No other significant finding. Read with the assistance of CAD: .[facility] - R2 Behavioral Therapist Version 9.2 IMPRESSION: No mammographic/tomosynthesis evidence for malignancy bilaterally ASSESSMENT:BIRADS 2: BENIGN FINDINGS BREAST DENSITY: b. There are scattered areas of fibroglandular density. BIRAD: 2 Benign findings. RECOMMENDATION: RECOMMENDED FOLLOW UP: Please continue right breast diagnostic, left breast screenin g mammograms in January 2020 SPECIFIC INTERVENTION/IMAGING/CONSULTATION RECOMMENDED:No additional intervention/ imaging/consultati on needed at this time. COMMUNICATION:Patient notified by letter COMMENT: The patient has been notified of the results by letter per MQSA requirements. Additional no tification policies are in place for contacting patient with suspicious or incomplete findings. Quality ID #225: The [employer] recommends an annual screening mammogram for women aged 40 years or over. This facility utilizes a reminder system to ensure that all patients receive reminder letters, and/or direct phone calls for appointments. This includes reminders for routine scr eening mammograms, diagnostic mammograms, or other Breast Imaging Interventions when appropriate. Th is patient will be placed in the appropriate reminder system. TECHNICAL DOCUMENTATION: FINDING NUMBER: (1) ASSESSMENT: (1) JOB ID: [id number] [employer]- All Rights Reserved Reading location - IP/workstation name: [email or web address]
== END ==
LOC: WI 10:57
PROVIDERS: ATTEND Internal Medicine Hematology & Oncology
DX: C50.211 Malignant neoplasm of upper-inner quadrant of right female breast (principal)
CPT/HCPCS: 77066

== ENCOUNTER → 2020-03-20 | Outpatient (CLI) | payer OTHER ==
--- NOTE | 2020-03-20 11:02 | WOMENS IMAGING REPORT ---
EXAM DESCRIPTION: BILAT DIAGNOSTIC MAMMO W/CAD IMAGES COMPLETED DATE/TIME: 03/20/2020 10:43 am REASON FOR STUDY: C50.211 MALIG NEOPLM OF UPPER-INNER QUADRANT OF RIGHT FEMALE BREAST C50.211 MALIG NEOPLM OF UPPER-INNER QUADRANT OF RIGHT FEMALE COMPARISON: 01/17/2019 and 12/15/2017. EXAM PARAMETERS: Standard craniocaudal and mediolateral oblique views of each breast recorded using digital acquisition. Additional true lateral and spot compression magnification MLO and CC images of the right breast acqu ired. Read with the assistance of CAD: .[facility] - [employer] Sales Representative Version 9.2 LIMITATIONS: None. FINDINGS: RIGHT BREAST MASSES: No suspicious masses. CALCIFICATIONS: No new or suspicious calcifications. ARCHITECTURAL DISTORTION: Stable treatment changes. ASYMMETRY: None noted. OTHER: No other significant findings. LEFT BREAST MASSES: No suspicious masses. CALCIFICATIONS: No new or suspicious calcifications. ARCHITECTURAL DISTORTION: None. ASYMMETRY: None noted. OTHER: No other significant finding. IMPRESSION: Stable mammographic appearance of both breasts. Stable treatment changes in the right b reast. No worrisome findings. BREAST DENSITY: a. The breasts are almost entirely fatty. BIRAD: ASSESSMENT: 2 Benign findings. RECOMMENDATION: RECOMMENDED FOLLOW UP: Post lumpectomy protocol. SPECIFIC INTERVENTION/IMAGING/CONSULTATION RECOMMENDED:No additional intervention/ imaging/consultati on needed at this time. COMMUNICATION:The imaging findings were not discussed with the patient. Her referring provider has be en notified of the findings. COMMENT: The patient has been notified of the results by letter per SA requirements. Additional no tification policies are in place for contacting patient with suspicious or incomplete findings. Quality ID #225: The [employer] recommends an annual screening mammogram for women aged 40 years or over. This facility utilizes a reminder system to ensure that all patients receive reminder letters, and/or direct phone calls for appointments. This includes reminders for routine scr eening mammograms, diagnostic mammograms, or other Breast Imaging Interventions when appropriate. Th is patient will be placed in the appropriate reminder system. TECHNICAL DOCUMENTATION: FINDING NUMBER: (1) ASSESSMENT: (1) JOB ID: [id number] 2010 [employer]- All Rights Reserved Reading location - IP/workstation name: [email or web address]
== END ==
LOC: WI 09:57
PROVIDERS: ATTEND Internal Medicine Hematology & Oncology
DX: C50.211 Malignant neoplasm of upper-inner quadrant of right female breast (principal)
CPT/HCPCS: 77066